=== PATIENT | male | born 1975 | race Caucasian/White ===

== ENCOUNTER 2021-05-29 17:10 | Emergency (ER) | payer OTHER ==
[~2021-05-29] VITALS: Ht 177.8 cm; Wt 141.5 kg
[~2021-05-29 17:10] MED LIST: NORVASC10 MG PO
[2021-05-29] MEDS ORDERED: TOPAMAX25 MG (17:22)
[2021-05-29] MEDS ORDERED: COZAAR50 MG (17:22)
[2021-05-29] MEDS ORDERED: TOPROL XL50 M1 (17:23)
== END 2021-05-29 22:47 | disposition home or self-care (01) ==
LOC: ER 17:10
DX: R07.89 Other chest pain (principal)